=== PATIENT | male | born 1945 | race Caucasian/White ===

== ENCOUNTER 2019-10-24 22:04 | Outpatient (REF) | payer MEDICARE, MEDICAID, SELFPAY ==
[2019-10-24 21:37] LABS: Abs Immature Grans 0.03 k/cumm (0.0-0.09); Absolute Basophil Count 0.05 k/cumm (0.0-0.2); Absolute Lymphocyte Count 1.65 k/cumm (1.2-3.4); Absolute Monocyte Count 0.79 k/cumm (0.11-0.7); Absolute Neutrophil Count 7.55 k/cumm (1.2-6.7); Basophils % 0.5; HCT 39.2 % (40.0-50.0); HGB 12.9 g/dL (13.5-17.5); Immature Grans % 0.3 %; Lymphocytes % 16.2; Mean Corp. HGB Concentration 32.9 g/dL (32.0-36.0); Mean Corpuscular Hemoglobin 29.4 pg (27.0-33.0); Mean Corpuscular Volume 89.3 fL (80-95); Mean Platelet Volume 10.1 fL (8.0-11.0); Monocytes % 7.8; Neutrophils % 74.2; Platelet Count 350 x1000/uL (130-400); RBC 4.39 m/cumm (4.50-6.00); RBC Distribution Width 15.4 % (11.8-14.1); White Blood Cell Count 10.17 k/cumm (4.4-10.8)
[2019-10-24 21:55] LABS: COMMENT (LAB VIEW ONLY) 160.91 mg/dL
[2019-10-24 23:06] LABS: Microalb ug/mg Crea 86.2 ug/mg Cr
[2019-10-25 15:26] LABS: Anion Gap 9.5 mmol/L (3-11); BUN 32 mg/dL (7-18); CO2 29.5 mmol/L (21.0-32.0); CREATININE 1.32 mg/dL (0.70-1.30); Calcium 9.4 mg/dL (8.5-10.1); Chloride 104 mmol/L (98-107); Estimated GFR 53.02 (mL/min/1.73m2); Glucose 101 mg/dL (74-106); Potassium 3.9 mmol/L (3.5-5.1); Sodium 143 mmol/L (136-145)
== END 2019-10-24 22:24 ==
LOC: NCHCN 22:04
PROVIDERS: Visit Provider Nurse Practitioner Family
DX: I10 Essential (primary) hypertension (principal); R53.83 Other fatigue; J96.11 Chronic respiratory failure with hypoxia
CPT/HCPCS: 80048; 82043; 82570; 85025

== ENCOUNTER 2020-06-19 14:03 | Outpatient (REF) | payer MEDICARE, MEDICAID, SELFPAY ==
[2020-06-19 22:13] LABS: HCT 36.3 % (40.0-50.0); HGB 11.9 g/dL (13.5-17.5); MCH 30.2 pg (27.0-33.0); MCHC 32.8 % (32.0-36.0); MCV 92.1 fL (80-95); MPV 10.4 fL (8.0-11.0); Platelet Count 320 10^3/uL (130-400); RBC 3.94 10^6/uL (4.36-5.78); RDW 14.9 % (11.8-14.1); RDW-SD 49.8 fL; WBC 9.42 10^3/uL (4.4-10.8)
== END 2020-06-19 14:23 ==
LOC: NCHCN 14:03
PROVIDERS: Visit Provider Nurse Practitioner Family
DX: N18.9 Chronic kidney disease, unspecified (principal); D64.9 Anemia, unspecified
CPT/HCPCS: 85027

== ENCOUNTER 2021-04-01 09:21 | Outpatient (REF) | payer MEDICARE, MEDICAID, SELFPAY ==
[2021-04-01 14:23] LABS: Anion Gap 12.1 mmol/L (3-11); BUN 39 mg/dL (7-18); CO2 26.9 mmol/L (21.0-32.0); CREATININE 1.4 mg/dL (0.70-1.30); Calcium 9.3 mg/dL (8.5-10.1); Calculated LDL 82 mg/dL (<100); Chloride 107 mmol/L (98-107); Cholesterol 155 mg/dL (<200); Estimated GFR 49.27 (mL/min/1.73m2); Glucose 148 mg/dL (74-106); HDL Cholesterol 67 mg/dL (40-60); Potassium 4.1 mmol/L (3.5-5.1); Sodium 146 mmol/L (136-145); Triglyceride 33 mg/dL (<150)
== END 2021-04-01 09:22 | disposition home or self-care (01) ==
LOC: NCHCN 09:21
PROVIDERS: Visit Provider Nurse Practitioner Family
DX: I12.9 Hypertensive chronic kidney disease with stage 1 through stage 4 chronic kidney disease, or unspecified chronic kidney disease (principal); N18.9 Chronic kidney disease, unspecified
CPT/HCPCS: 80048; 80061

== ENCOUNTER 2023-02-16 18:33 | Outpatient (REF) | payer OTHER, MEDICAID, SELFPAY ==
--- OUTSIDE RECORDS SUMMARY | 2023-02-16 18:42 | XMS_ITS | Continuity of Care Document ---
Author Name Unknown Organization [facility] Address [address] [place] [address] Care Team Providers Care Side Puller Name Role Phone Lillian Baez Primary Care Physician Encounter [facility] [id number] Date(s): 10/08/22 - 10/08/[address] [id number] Encounter Diagnosis Acute bronchitis(Discharge Diagnosis) - 10/08/22 Atypical chest pain(Discharge Diagnosis) - 10/08/22 Acute bronchitis, unspecified(Final) - Other chest pain(Final) - Discharge Disposition: Home or Self Care Attending Physician: Alie Marcial MD Admitting Physician: Alie Marcial MD Allergies, Adverse Reactions, Alerts Substance Reaction Severity Status levoFLOXacin Skin rash Unknown Active Assessment and Plan Extracted from: Title:Clinical Document Author:Cathy Junior te:10/08/22 Diagnosis: 1. Acute bronchit is Comment: Diagnosis: 2. Atypical chest pain Comment: Diagnosis: Chest pain Comment: Functional Status 10/08/22 Family Member Travel History No recent t ravel Recent Travel History No recent travel Other exposure to Infectious Disease Non e Immunizations Given and Recorded Vaccine Date Status Refusal Reason pneumococcal 13-valent conjugate vaccine 09/05/15 Recorded pneumococcal 23-polyvalent vaccine 09/27/10 Record ed Results Laboratory List Name Date Troponin-I 10/08/22 Basic Metabolic Panel 10/08/22 CBC w/ Diff 10/08/22 D-Dimer 10/08/22 NT- Pro BNP 10/08/22 Troponin-I 10/08/22 Automated Diff 10/08/22 Most recent to oldest [Reference Range]: 1 2 WBC [5.0-10.0 x10^3/mcL] 12.4 x10^3/mcL *HI* (10/08/22 7:31 AM) RBC [4.6-6.0 x10^6/mcL] 3.9 x10^6/mcL *LOW* (10/08/22 7:31 AM) Neutro Auto [40.0-75.0 %] 75.4 % *HI* (10/08/22 7:31 AM) Lymph Auto [20.0-50.0 %] 14.2 % *LOW* (10/08/22 7:31 AM) [place] Auto [2.0-15.0 %] 8.7 % (10/08/22 7:31 AM) Basophil Auto [0.0-1.0 %] 0.4 % (10/08/22 7:31 AM) BUN [7-18 mg/dL] 23 mg/dL *HI* (10/08/22 7:31 AM) Glucose Level [74-106 mg/dL] 130 mg/dL *HI* (10/08/22 7:31 AM) Potassium Level [3.5-5.1 mmol/L] 3.5 mmo l/L (10/08/22 7:31 AM) MCV [80.0-96.0] 91.9 (10/08/22 7:31 AM) MCHC [31.0-35.0 g/dL] 32.4 g/dL (10/08/22 7:31 AM) Troponin-I [0.0-76.2 pg/mL] 5.4 pg/mL (10/08/22 10:00 AM) 5.8 pg/mL (10/08/22 7:31 AM) Sodium Level [136-145 mmol/L] 142 mmol/L (10/08/22 7:31 AM) Hct [41.0-51.0 %] 36.1 % *LOW* (10/08/22 7:31 AM) Calcium Level [8.5-10.1 mg/dL] 8.9 mg/dL (10/08/22 7:31 AM) MCH [26.0-32.0 pg] 29.8 pg (10/08/22 7:31 AM) Neutro Absolute 9.4 x10^3/mcL *NA* (10/08/22 7:31 AM) Hgb [14.0-18.0 g/dL] 11.7 g/dL *LOW* (10/08/22 7:31 AM) Platelets [130-450 x10^3/mcL] 320 x10^3/ mcL (10/08/22 7:31 AM) CO2 [21-32 mmol/L] 28 mmol/L (10/08/22 7:31 AM) eGFR Non-AA [>=60] 52 *LOW* (10/08/22 7:31 AM) eGFR AA [>=60] 52 *LOW* (10/08/22 7:31 AM) NT-proBNP [0-450 pg/mL] 331 pg/mL (10/08/22 7:31 AM) Chloride Level [98-107 mmol/L] 104 mmol/ L (10/08/22 7:31 AM) RDW-CV [11.5-17.0 %] 15.1 % (10/08/22 7:31 AM) Imm Gran Auto [0.0-0.9 %] 0.4 % (10/08/22 7:31 AM) Creatinine Level [0.70-1.30 mg/dL] 1.39 mg/dL *HI* (10/08/22 7:31 AM) D Dimer, (Quant.) [0.00-0.50 mg/L] 0.34 mg/L (10/08/22 7:31 AM) Eos, Auto [1.0-6.0 %] 0.9 % *LOW* (10/08/22 7:31 AM) Vital Signs Most recent to oldest [Reference Range]: 1 2 3 Temperature Temporal Artery [36-38 Deg C] 36.7 Deg C (10/08/22 7:05 AM) Peripheral Pulse Rate [60-100 bpm] 76 bpm (10/08/22 10:40 AM) 72 bpm (10/08/22 9:32 AM) 76 bpm (10/08/22 8:12 AM) Respiratory Rate [12-24 br/min] 16 br/min (10/08/22 7:05 AM) Blood Pressure [90-140/60-90 mmHg] 144/66mmHg *HI* (10/08/22 10:40 AM) 140/68mmHg (10/08/22 9:32 AM) 138/68mmHg (10/08/22 8:12 AM) Weight Dosing 85.00 kg (10/08/22 7:20 AM) Weight Estimated 85.00 kg (10/08/22 7:05 AM) Height/Length Dosing 162.000 cm (10/08/22 7:20 AM) Height/Length Estimated 162.000 cm (10/08/22 7:05 AM) Social History Social History Type Response Tobacco Never tobacco user T obacco Use:. Sex Male Hospital Discharge Instructions Patient Education 10/08/2022 09:49:49 Nonspecific Chest Pain, Adult Nonspecific Chest Pain, Adult Chest pain is an uncomfortable, tight, or painful feeling in the chest. The pain can feel like a crushing, aching, or squeezing pressure. A person can feel a burning or tingling sensation. Chest paincan also be felt in your back, neck, jaw, shoulder, or arm. This pain can be worse when you move, sneeze, or take a deep breath. Chest pain can be caused by a condition that is life-threatening. This must be treated right away. It can also be caused by something that is not life- threatening. If you have chest pain, it can be hard to know the difference, so it is important to get help right away to make sure that you do not have a serious condition. Some life-threatening causes of chest pain include: ??? Heart attack. ??? A tear in the body's main blood vessel (aortic dissection). ??? Inflammation around your heart (pericarditis). ??? A problem in the lungs, such as a blood clot (pulmonary embolism) or a collapsed lung (pneumothorax). Some non life-threatening causes of chest pain include: ??? Heartburn. ??? Anxiety or stress. ??? Damage to the bones, muscles, and cartilage that make up your chest wall. ??? Pneumonia or bronchitis. ??? Shingles infection (varicella-zoster virus). Your chest pain may come and go. It may also be constant. Your health care provider will do tests and other studies to find the cause of your pain. Treatment will depend on the cause of your chest pain. Follow these instructions at home: Medicines ??? Take eikd-jbp-znrwhtw and prescription medicines only as told by your health care provider. ??? If you were prescribed an antibiotic medicine, take it as told by your health care provider. Donot stop taking the antibiotic even if you start to feel better. Activity ??? Avoid any activities that cause chest pain. ??? Do not lift anything that is heavier than 10 lb (4.5 kg), or the limit that you are told, untilyour health care provider says that it is safe. ??? Rest as directed by your health care provider. ??? Return to your normal activities only as told by your health care provider. Ask your health care provider what activities are safe for you. Lifestyle ??? Do not use any products that contain nicotine or tobacco, such as cigarettes, e-cigarettes, andchewing tobacco. If you need help quitting, ask your health care provider. ??? Do not drink alcohol. ??? Make healthy lifestyle changes as recommended. These may include: ??? Getting regular exercise. Ask your health care provider to suggest some exercises that are safefor you. ??? Eating a heart-healthy diet. This includes plenty of fresh fruits and vegetables, whole grains,low-fat (lean) protein, and low-fat dairy products. A dietitian can help you find healthy eating options. ??? Maintaining a healthy weight. ??? Managing any other health conditions you may have, such as high blood pressure (hypertension) or diabetes. ??? Reducing stress, such as with yoga or relaxation techniques. General instructions ??? Pay attention to any changes in your symptoms. ??? It is up to you to get the results of any tests that were done. Ask your health care provider, or the department that is doing the tests, when your results will be ready. ??? Keep all follow-up visits as told by your health care provider. This is important. ??? You may be asked to go for further testing if your chest pain does not go away. Contact a health care provider if: ??? Your chest pain does not go away. ??? You feel depressed. ??? You have a fever. ??? You notice changes in your symptoms or develop new symptoms. Get help right away if: ??? Your chest pain gets worse. ??? You have a cough that gets worse, or you cough up blood. ??? You have severe pain in your abdomen. ??? You faint. ??? You have sudden, unexplained chest discomfort. ??? You have sudden, unexplained discomfort in your arms, back, neck, or jaw. ??? You have shortness of breath at any time. ??? You suddenly start to sweat, or your skin gets clammy. ??? You feel nausea or you vomit. ??? You suddenly feel lightheaded or dizzy. ??? You have severe weakness, or unexplained weakness or fatigue. ??? Your heart begins to beat quickly, or it feels like it is skipping beats. These symptoms may represent a serious problem that is an emergency. Do not wait to see if the symptoms will go away. Get medical help right away. Call your local emergency services (911 in the [place] Do not drive yourself to the hospital. Summary ??? Chest pain can be caused by a condition that is serious and requires urgent treatment. It may also be caused by something that is not life-threatening. ??? Your health care provider may do lab tests and other studies to find the cause of your pain. ??? Follow your health care provider's instructions on taking medicines, making lifestyle changes, and getting emergency treatment if symptoms become worse. ??? Keep all follow-up visits as told by your health care provider. This includes visits for any further testing if your chest pain does not go away. This information is not intended to replace advice given to you by your health care provider. Make sure you discuss any questions you have with your health care provider. Document Revised: 11/27/2021 Document Reviewed: 11/27/2021 [employer] Patient Education ?? 2021 [employer]. 10/08/2022 09:49:47 Acute Bronchitis, Adult Acute Bronchitis, Adult Acute bronchitis is sudden or acute swelling of the air tubes (bronchi) in the lungs. Acute bronchitis causes these tubes to fill with mucus, which can make it hard to breathe. It can also cause coughing or wheezing. In adults, acute bronchitis usually goes away within 2 weeks. A cough caused by bronchitis may lastup to 3 weeks. Smoking, allergies, and asthma can make the condition worse. What are the causes? This condition can be caused by germs and by substances that irritate the lungs, including: ??? Cold and flu viruses. The most common cause of this condition is the virus that causes the common cold. ??? Bacteria. ??? Substances that irritate the lungs, including: ??? Smoke from cigarettes and other forms of tobacco. ??? Dust and pollen. ??? Fumes from chemical products, gases, or burned fuel. ??? Other materials that pollute indoor or outdoor air. ??? Close contact with someone who has acute bronchitis. What increases the risk? The following factors may make you more likely to develop this condition: ??? A weak body's defense system, also called the immune system. ??? A condition that affects your lungs and breathing, such as asthma. What are the signs or symptoms? Common symptoms of this condition include: ??? Lung and breathing problems, such as: ??? Coughing. This may bring up clear, yellow, or green mucus from your lungs (sputum). ??? Wheezing. ??? Having too much mucus in your lungs (chest congestion). ??? Having shortness of breath. ??? A fever. ??? Chills. ??? Aches and pains, including: ??? Tightness in your chest and other body aches. ??? A sore throat. How is this diagnosed? This condition is usually diagnosed based on: ??? Your symptoms and medical history. ??? A physical exam. You may also have other tests, including tests to rule out other conditions, such as pneumonia. These tests include: ??? A test of lung function. ??? Test of a mucus sample to look for the presence of bacteria. ??? Tests to check the oxygen level in your blood. ??? Blood tests. ??? Chest X-ray. How is this treated? Most cases of acute bronchitis clear up over time without treatment. Your health care provider may recommend: ??? Drinking more fluids. This can thin your mucus, which may improve your breathing. ??? Using a device that gets medicine into your lungs (inhaler) to help improve breathing and control coughing. ??? Using a vaporizer or a humidifier. These are machines that add water to the air to help you breathe better. ??? Taking a medicine for a fever. ??? Taking a medicine that thins mucus and clears congestion (expectorant). ??? Taking a medicine that prevents or stops coughing (cough suppressant). Follow these instructions at home: Activity ??? Get plenty of rest. ??? Return to your normal activities as told by your health care provider. Ask your health care provider what activities are safe for you. Lifestyle ??? Drink enough fluid to keep your urine pale yellow. ??? Do not drink alcohol. ??? Do not use any products that contain nicotine or tobacco, such as cigarettes, e-cigarettes, andchewing tobacco. If you need help quitting, ask your health care provider. Be aware that: ??? Your bronchitis will get worse if you smoke or breathe in other people's smoke (secondhand smoke). ??? Your lungs will heal faster if you quit smoking. General instructions ??? Take dqkf-myr-yehezhh and prescription medicines only as told by your health care provider. ??? Use an inhaler, vaporizer, or humidifier as told by your health care provider. ??? If you have a sore throat, gargle with a salt-water mixture 3???4 times a day or as needed. To make a salt-water mixture, completely dissolve ?1 tsp (3???6 g) of salt in 1 cup (237 mL) of warm water. ??? Take two teaspoons of honey at bedtime to lessen coughing at night. ??? Keep all follow-up visits as told by your health care provider. This is important. How is this prevented? To lower your risk of getting this condition again: ??? Wash your hands often with soap and water. If soap and water are not available, use hand possum trapper. ??? Avoid contact with people who have cold symptoms. ??? Try not to touch your mouth, nose, or eyes with your hands. ??? Avoid places where there are fumes from chemicals. Breathing these fumes will make your condition worse. ??? Get the flu shot every year. Contact a health care provider if: ??? Your symptoms do not improve after 2 weeks of treatment. ??? You vomit more than once or twice. ??? You have symptoms of dehydration such as: ??? Dark urine. ??? Dry skin or eyes. ??? Increased thirst. ??? Headaches. ??? Confusion. ??? Muscle cramps. Get help right away if you: ??? Cough up blood. ??? Feel pain in your chest. ??? Have severe shortness of breath. ??? Faint or keep feeling like you are going to faint. ??? Have a severe headache. ??? Have fever or chills that get worse. These symptoms may represent a serious problem that is an emergency. Do not wait to see if the symptoms will go away. Get medical help right away. Call your local emergency services (911 in the [place] Do not drive yourself to the hospital. Summary ??? Acute bronchitis is sudden (acute) inflammation of the air tubes (bronchi) between the windpipeand the lungs. In adults, acute bronchitis usually goes away within 2 weeks, although coughing may last 3 weeks or longer. ??? Take dxpc-lhv-zkcvkoc and prescription medicines only as told by your health care provider. ??? Drink enough fluid to keep your urine pale yellow. ??? Contact a health care provider if your symptoms do not improve after 2 weeks of treatment. ??? Get help right away if you cough up blood, faint, or have chest pain or shortness of breath. This information is not intended to replace advice given to you by your health care provider. Make sure you discuss any questions you have with your health care provider. Document Revised: 08/13/2021 Document Reviewed: 04/05/2020 [employer] Patient Education ?? 2021 [employer]. Follow Up Care 10/08/2022 07:05:45 With:Follow up with primary care provider Address: When:1 to 2 weeks Physician Emergency department Note * Alie Marcial MD: PERFORM Event Display: ED Note Physician Authored Date: [id number] NELI KING :1945 Age:77 years Sex:Male Visit Date:10/08/2022 Primary Care Physician: Lillian Baez NP Basic Information Time Seen: Alie Marcial MD / 10/08/2022 07:21 Chief Complaint Pt arrives with complaints of sudden onset of chest pain and SOB History Of Present Illness: states chest pain started when he woke up this a.m.??seem to get worse. ??It was worse with a deep breath in left side of chest. ??Patient has never had similar symptoms before. ??No fever no chills??no ear nose or throat pain??chronic cough no acute change??no nausea no vomiting no abdominal pain??no extremity edema no skin rashes??chronic umbilical hernia.?? Patient had reported??pain??has been there when he woke up but then became eventually a 10 out of 10 he tried his nebulizer treatment??he took 1 baby??aspirin. ??By the time EMS got there his pain had improved slightly??they gave him another 3 baby aspirin.?? Patient's pain improved??after they gave him some nitro.?? Patient pain 1 out of 10??here in the emergency department.?? Patient reports he has nasal congestion. Review of Systems: see hpi for ros Physical Exam Vitals & Measurements T:??36.7?C ??(Temporal Artery)?? HR:??72??(Peripheral)?? RR:??16?? BP:??140/68?? SpO2:??98%?? HT:??162.000??cm?? WT:??85.00??kg??(Estimated)?? O2 Flow Rate:??2?? O2 Therapy:??Nasal cannula?? General: Alert and oriented, well nourished,?No??acute distress Eye: PER?Normal??conjunctiva,??No??scleral icterus HENT: Normocephalic,??nontraumatic??Normal hearing Neck: Supple, non-tender,?No??JVD,?No??lymphadenopathy Lungs: Clear to auscultation,?Non-labored?? respiration Heart:?Normal?? rate,?Regular??rhythm,?No??murmur,?No??gallop,?No??edema Chest: wall excursion wnl no abnormal movements no obvious deformities Abdomen: Soft, non-tender, non-distended,??No??masses Musculoskeletal:?Normal?? range of motion and strength,?No??tenderness,?No??swelling Skin: Skin is warm, dry and pink,?No??rashes,?No??lesions Neurologic: Awake, alert and oriented X4 Psychiatric: Cooperative, appropriate mood and affect Medical Decision Making: For MDM please see under assessment and plan Procedure No Qualifying Data Assessment/Plan 1.??Acute bronchitis??J20.9 I think this is early bronchitis for patient especially where he has nasal congestion??and pain worse with cough??and deep inspiration we will place patient on a Z-Suresh??if patient worsens he will return to the emergency department or see primary care provider or manufacturing teacher Ordered: Discharge Patient, 10/08/22 10:47:00 EST, Home Independently, Constant Indicator ?? 2.??Atypical chest pain??R07.89 Patient's troponins x2 and EKG x2 are negative??if further pain patient will return to the emergency department or see primary care provider.?? Patient is??to follow-up with his primary care provider. Ordered: Discharge Patient, 10/08/22 10:47:00 EST, Home Independently, Constant Indicator ?? Patient Education Nonspecific Chest Pain, Adult Acute Bronchitis, Adult Follow Up With When Contact Information Follow up with primary care provider Within 1 to 2 weeks Additional Instructions: Problem List/Past Medical History Ongoing No qualifying data Historical No qualifying data Medication Administration Given !-Flexeril, 10 mg, Oral Allergies levoFLOXacin??(Skin rash) Social History Electronic Cigarette/Vaping Electronic Cigarette Use: Never. Tobacco Never tobacco user Tobacco Use:. Lab Results CBC and Differential?? LATEST RESULTS?? WBC?? 10/08/22 07:31?? 12.4 ??High?? RBC?? 10/08/22 07:31?? 3.9 ??Low?? Hgb?? 10/08/22 07:31?? 11.7 ??Low?? Hct?? 10/08/22 07:31?? 36.1 ??Low?? MCV?? 10/08/22 07:31?? 91.9?? MCH?? 10/08/22 07:31?? 29.8?? MCHC?? 10/08/22 07:31?? 32.4?? RDW-CV?? 10/08/22 07:31?? 15.1?? Platelets?? 10/08/22 07:31?? 320?? Neutro Auto?? 10/08/22 07:31?? 75.4 ??High?? Lymph Auto?? 10/08/22 07:31?? 14.2 ??Low?? [place] Auto?? 10/08/22 07:31?? 8.7?? Eos, Auto?? 10/08/22 07:31?? 0.9 ??Low?? Basophil Auto?? 10/08/22 07:31?? 0.4?? Imm Gran Auto?? 10/08/22 07:31?? 0.4?? Neutro Absolute?? 10/08/22 07:31?? 9.4? Coagulation?? LATEST RESULTS?? D Dimer, (Quant.)?? 10/08/22 07:31?? 0.34? Routine Chemistry?? LATEST RESULTS?? Sodium Level?? 10/08/22 07:31?? 142?? Potassium Level?? 10/08/22 07:31?? 3.5?? Chloride Level?? 10/08/22 07:31?? 104?? CO2?? 10/08/22 07:31?? 28?? BUN?? 10/08/22 07:31?? 23 ??High?? Glucose Level?? 10/08/22 07:31?? 130 ??High?? Creatinine Level?? 10/08/22 07:31?? 1.39 ??High?? eGFR AA?? 10/08/22 07:31?? 52 ??Low?? eGFR Non-AA?? 10/08/22 07:31?? 52 ??Low?? Calcium Level?? 10/08/22 07:31?? 8.9? Cardiac Isoenzymes?? LATEST RESULTS?? Troponin-I?? 10/08/22 10:00?? 5.4?? NT-proBNP?? 10/08/22 07:31?? 331? Electronically Signed on 10/08/22 10:51 AM Alie Marcial MD Emergency department Discharge instructions * Alie Marcial MD: PERFORM Event Display: ED Discharge Information Authored Date: [id number] NELI KING :1945 Age:77 years Sex:Male Visit Date:10/08/2022 Primary Care Physician: Lillian Baez LCSW Discharge Instructions We would like to thank you for allowing us to assist you with your healthcare needs. The following includes patient education materials and information regarding your injury/illness. Diagnosis from Today's Visit Acute bronchitis Atypical chest pain Discharge Vitals Temperature??(Temporal Artery) 98.1 ??F (36.7 ??C) Heart Rate??(Peripheral) 72 Respiratory Rate?? 16 Blood Pressure?? 140/68?? Height?? 63.78 in (162.000 cm) Weight??(Estimated) 187.42 lb (85.00 kg) Allergies levoFLOXacin??(Skin rash) What to Do Next You Need to Schedule the Following Appointments Follow Up with??Follow up with primary care provider When:??Within 1 to 2 weeks You were treated today on an emergency basis; it may be christianson to contact your primary care provider to notify them of your visit today. You may have been referred to your regular doctor or a specialist, please follow up as instructed. If your condition worsens or you can't get in to see the doctor, contact the Emergency Department. Education Materials Nonspecific Chest Pain, Adult Chest pain is an uncomfortable, tight, or painful feeling in the chest. The pain can feel like a crushing, aching, or squeezing pressure. A person can feel a burning or tingling sensation. Chest paincan also be felt in your back, neck, jaw, shoulder, or arm. This pain can be worse when you move, sneeze, or take a deep breath. Chest pain can be caused by a condition that is life-threatening. This must be treated right away. It can also be caused by something that is not life- threatening. If you have chest pain, it can be hard to know the difference, so it is important to get help right away to make sure that you do not have a serious condition. Some life-threatening causes of chest pain include: ? Heart attack. ? A tear in the body's main blood vessel (aortic dissection). ? Inflammation around your heart (pericarditis). ? A problem in the lungs, such as a blood clot (pulmonary embolism) or a collapsed lung (pneumothorax). Some non life-threatening causes of chest pain include: ? Heartburn. ? Anxiety or stress. ? Damage to the bones, muscles, and cartilage that make up your chest wall. ? Pneumonia or bronchitis. ? Shingles infection (varicella-zoster virus). Your chest pain may come and go. It may also be constant. Your health care provider will do tests and other studies to find the cause of your pain. Treatment will depend on the cause of your chest pain. Follow these instructions at home: Medicines ? Take jyky-ebd-jgyiorf and prescription medicines only as told by your health care provider. ? If you were prescribed an antibiotic medicine, take it as told by your health care provider. Do notstop taking the antibiotic even if you start to feel better. Activity ? Avoid any activities that cause chest pain. ? Do not lift anything that is heavier than 10 lb (4.5 kg), or the limit that you are told, until your health care provider says that it is safe. ? Rest as directed by your health care provider. ? Return to your normal activities only as told by your health care provider. Ask your health care provider what activities are safe for you. Lifestyle ? Do not use any products that contain nicotine or tobacco, such as cigarettes, e- cigarettes, and chewing tobacco. If you need help quitting, ask your health care provider. ? Do not drink alcohol. ? Make healthy lifestyle changes as recommended. These may include: ? Getting regular exercise. Ask your health care provider to suggest some exercises that are safe foryou. ? Eating a heart-healthy diet. This includes plenty of fresh fruits and vegetables, whole grains, low-fat (lean) protein, and low-fat dairy products. A dietitian can help you find healthy eating options. ? Maintaining a healthy weight. ? Managing any other health conditions you may have, such as high blood pressure (hypertension) or diabetes. ? Reducing stress, such as with yoga or relaxation techniques. General instructions ? Pay attention to any changes in your symptoms. ? It is up to you to get the results of any tests that were done. Ask your health care provider, or the department that is doing the tests, when your results will be ready. ? Keep all follow-up visits as told by your health care provider. This is important. ? You may be asked to go for further testing if your chest pain does not go away. Contact a health care provider if: ? Your chest pain does not go away. ? You feel depressed. ? You have a fever. ? You notice changes in your symptoms or develop new symptoms. Get help right away if: ? Your chest pain gets worse. ? You have a cough that gets worse, or you cough up blood. ? You have severe pain in your abdomen. ? You faint. ? You have sudden, unexplained chest discomfort. ? You have sudden, unexplained discomfort in your arms, back, neck, or jaw. ? You have shortness of breath at any time. ? You suddenly start to sweat, or your skin gets clammy. ? You feel nausea or you vomit. ? You suddenly feel lightheaded or dizzy. ? You have severe weakness, or unexplained weakness or fatigue. ? Your heart begins to beat quickly, or it feels like it is skipping beats. These symptoms may represent a serious problem that is an emergency. Do not wait to see if the symptoms will go away. Get medical help right away. Call your local emergency services (911 in the [place] Do not drive yourself to the hospital. Summary ? Chest pain can be caused by a condition that is serious and requires urgent treatment. It may also be caused by something that is not life-threatening. ? Your health care provider may do lab tests and other studies to find the cause of your pain. ? Follow your health care provider's instructions on taking medicines, making lifestyle changes, and getting emergency treatment if symptoms become worse. ? Keep all follow-up visits as told by your health care provider. This includes visits for any further testing if your chest pain does not go away. This information is not intended to replace advice given to you by your health care provider. Make sure you discuss any questions you have with your health care provider. Document Revised: 11/27/2021 Document Reviewed: 11/27/2021 [employer] Patient Education ?? 2021 [employer] Acute Bronchitis, Adult Acute bronchitis is sudden or acute swelling of the air tubes (bronchi) in the lungs. Acute bronchitis causes these tubes to fill with mucus, which can make it hard to breathe. It can also cause coughing or wheezing. In adults, acute bronchitis usually goes away within 2 weeks. A cough caused by bronchitis may lastup to 3 weeks. Smoking, allergies, and asthma can make the condition worse. What are the causes? This condition can be caused by germs and by substances that irritate the lungs, including: ? Cold and flu viruses. The most common cause of this condition is the virus that causes the common cold. ? Bacteria. ? Substances that irritate the lungs, including: ? Smoke from cigarettes and other forms of tobacco. ? Dust and pollen. ? Fumes from chemical products, gases, or burned fuel. ? Other materials that pollute indoor or outdoor air. ? Close contact with someone who has acute bronchitis. What increases the risk? The following factors may make you more likely to develop this condition: ? A weak body's defense system, also called the immune system. ? A condition that affects your lungs and breathing, such as asthma. What are the signs or symptoms? Common symptoms of this condition include: ? Lung and breathing problems, such as: ? Coughing. This may bring up clear, yellow, or green mucus from your lungs (sputum). ? Wheezing. ? Having too much mucus in your lungs (chest congestion). ? Having shortness of breath. ? A fever. ? Chills. ? Aches and pains, including: ? Tightness in your chest and other body aches. ? A sore throat. How is this diagnosed? This condition is usually diagnosed based on: ? Your symptoms and medical history. ? A physical exam. You may also have other tests, including tests to rule out other conditions, such as pneumonia. These tests include: ? A test of lung function. ? Test of a mucus sample to look for the presence of bacteria. ? Tests to check the oxygen level in your blood. ? Blood tests. ? Chest X-ray. How is this treated? Most cases of acute bronchitis clear up over time without treatment. Your health care provider may recommend: ? Drinking more fluids. This can thin your mucus, which may improve your breathing. ? Using a device that gets medicine into your lungs (inhaler) to help improve breathing and control coughing. ? Using a vaporizer or a humidifier. These are machines that add water to the air to help you breathebetter. ? Taking a medicine for a fever. ? Taking a medicine that thins mucus and clears congestion (expectorant). ? Taking a medicine that prevents or stops coughing (cough suppressant). Follow these instructions at home: Activity ? Get plenty of rest. ? Return to your normal activities as told by your health care provider. Ask your health care provider what activities are safe for you. Lifestyle ? Drink enough fluid to keep your urine pale yellow. ? Do not drink alcohol. ? Do not use any products that contain nicotine or tobacco, such as cigarettes, e- cigarettes, and chewing tobacco. If you need help quitting, ask your health care provider. Be aware that: ? Your bronchitis will get worse if you smoke or breathe in other people's smoke (secondhand smoke). ? Your lungs will heal faster if you quit smoking. General instructions ? Take crjb-mxj-urcdstu and prescription medicines only as told by your health care provider. ? Use an inhaler, vaporizer, or humidifier as told by your health care provider. ? If you have a sore throat, gargle with a salt-water mixture 3???4 times a day or as needed. To makea salt-water mixture, completely dissolve ?1 tsp (3???6 g) of salt in 1 cup (237 mL) of warm water. ? Take two teaspoons of honey at bedtime to lessen coughing at night. ? Keep all follow-up visits as told by your health care provider. This is important. How is this prevented? To lower your risk of getting this condition again: ? Wash your hands often with soap and water. If soap and water are not available, use hand possum trapper. ? Avoid contact with people who have cold symptoms. ? Try not to touch your mouth, nose, or eyes with your hands. ? Avoid places where there are fumes from chemicals. Breathing these fumes will make your condition worse. ? Get the flu shot every year. Contact a health care provider if: ? Your symptoms do not improve after 2 weeks of treatment. ? You vomit more than once or twice. ? You have symptoms of dehydration such as: ? Dark urine. ? Dry skin or eyes. ? Increased thirst. ? Headaches. ? Confusion. ? Muscle cramps. Get help right away if you: ? Cough up blood. ? Feel pain in your chest. ? Have severe shortness of breath. ? Faint or keep feeling like you are going to faint. ? Have a severe headache. ? Have fever or chills that get worse. These symptoms may represent a serious problem that is an emergency. Do not wait to see if the symptoms will go away. Get medical help right away. Call your local emergency services (911 in the [place] Do not drive yourself to the hospital. Summary ? Acute bronchitis is sudden (acute) inflammation of the air tubes (bronchi) between the windpipe andthe lungs. In adults, acute bronchitis usually goes away within 2 weeks, although coughing may last3 weeks or longer. ? Take qjai-edd-tzwjlnk and prescription medicines only as told by your health care provider. ? Drink enough fluid to keep your urine pale yellow. ? Contact a health care provider if your symptoms do not improve after 2 weeks of treatment. ? Get help right away if you cough up blood, faint, or have chest pain or shortness of breath. This information is not intended to replace advice given to you by your health care provider. Make sure you discuss any questions you have with your health care provider. Document Revised: 08/13/2021 Document Reviewed: 04/05/2020 [employer] Patient Education ?? 2021 [employer] Tests Performed Medications and Immunizations Administered Given !-Flexeril, 10 mg, Oral Lab Test Name Test Result Date/Time WBC 12.4 x10^3/mcL 10/08/2022 07:31 EST RBC 3.9 x10^6/mcL 10/08/2022 07:31 EST Hgb 11.7 g/dL 10/08/2022 07:31 EST Hct 36.1 % 10/08/2022 07:31 EST MCV 91.9 10/08/2022 07:31 EST MCH 29.8 pg 10/08/2022 07:31 EST MCHC 32.4 g/dL 10/08/2022 07:31 EST RDW-CV 15.1 % 10/08/2022 07:31 EST Platelets 320 x10^3/mcL 10/08/2022 07:31 EST Neutro Auto 75.4 % 10/08/2022 07:31 EST Lymph Auto 14.2 % 10/08/2022 07:31 EST [place] Auto 8.7 % 10/08/2022 07:31 EST Eos, Auto 0.9 % 10/08/2022 07:31 EST Basophil Auto 0.4 % 10/08/2022 07:31 EST Imm Gran Auto 0.4 % 10/08/2022 07:31 EST Neutro Absolute 9.4 x10^3/mcL 10/08/2022 07:31 EST D Dimer, (Quant.) 0.34 mg/L 10/08/2022 07:31 EST Sodium Level 142 mmol/L 10/08/2022 07:31 EST Potassium Level 3.5 mmol/L 10/08/2022 07:31 EST Chloride Level 104 mmol/L 10/08/2022 07:31 EST CO2 28 mmol/L 10/08/2022 07:31 EST BUN 23 mg/dL 10/08/2022 07:31 EST Glucose Level 130 mg/dL 10/08/2022 07:31 EST Creatinine Level 1.39 mg/dL 10/08/2022 07:31 EST eGFR AA 52 10/08/2022 07:31 EST eGFR Non-AA 52 10/08/2022 07:31 EST Calcium Level 8.9 mg/dL 10/08/2022 07:31 EST Troponin-I 5.4 pg/mL 10/08/2022 10:00 EST NT-proBNP 331 pg/mL 10/08/2022 07:31 EST Patient/Print Journalist Signature Patient Name:NELI KING I have received this information and my questions have been answered. Patient/Print Journalist Name: Patient/Print Journalist Signature: Relationship to Patient: Witness Name/Signature: Date: Electronically Signed on: 10/08/2022 10:53 ESTSigned by:AMS Discharge summary * Cathy Junior: PERFORM Event Display: Discharge Note Authored Date: * Cathy Junior: PERFORM Event Display: Discharge Note Authored Date: Diagnosis: 1. Acute bronchitis Comment: Diagnosis: 2. Atypical chest pain Comment: Diagnosis: Chest pain Comment: Electronically Signed on 10/08/22 11:14 AM Cathy Junior Patient Care team information Personnel Name: Lillian Baez NP Address: Address: [address] [place] [phone] [id number]
--- OUTSIDE RECORDS SUMMARY | 2023-02-16 18:42 | XMS_ITS | Continuity of Care Document ---
Author Name Unknown Organization [facility] Address [address] [place] [address] Care Team Providers Care Dredge Pipe Installer Name Role Phone Lillian Baez Primary Care Physician Encounter [facility] Date(s): 12/23/22 - 01/29/[address] [phone] Discharge Disposition: Home or Self Care Attending Physician: Gabriel Velez MD Admitting Physician: Gabriel Velez MD Referring Physician: Gabriel Velez MD Allergies, Adverse Reactions, Alerts Substance Reaction Severity Status levoFLOXacin Skin rash Unknown Active Immunizations Given and Recorded Vaccine Date Status Refusal Reason pneumococcal 13-valent conjugate vaccine 09/05/15 Recorded pneumococcal 23-polyvalent vaccine 09/27/10 Record ed Social History Social History Type Response Tobacco Never tobacco user T obacco Use:. Sex Male Patient Care team information Care Team Personnel Name: Lillian Baez ANIMAL CONTROL SUPERVISOR Position: No Access Member Role: Primary Care Physician Address: Address: [address] [place] [id number]
--- OUTSIDE RECORDS SUMMARY | 2023-02-16 18:43 | XMS_ITS | Continuity of Care Document ---
Author Name Unknown Organization [facility] Address Unknown Care Team Providers Care Tin Stacker Name Role Phone Unknown PCP, Unknown PCP Primary Care Physician Unavailable Encounter Date(s): 06/05/21 - 06/05/21 [facility] [address] [place], [place] [address] [facility] Encounter Diagnosis COPD with acute bronchitis(Discharge Diagnosis) - 06/05/21 Sleep apnea in adult(Discharge Diagnosis) - 06/05/21 COPD without exacerbation(Discharge Diagnosis) - 06/05/21 Discharge Disposition: Home or Self Care Attending Physician: Malaika Pastrana MD Admitting Physician: Malaika Pastrana MD Allergies, Adverse Reactions, Alerts Substance Reaction Severity Status Levaquin Active Immunizations Given and Recorded Vaccine Date Status Refusal Reason influenza virus vaccine, inactivated 09/28/18 Basil rded pneumococcal 13-valent vaccine 09/05/15 Recorded (Tdap) diphth/acel pertuss/tetanus adult 04/24/11 Recorded pneumococcal 23-valent vaccine 03/25/11 Recorded Medications acetaminophen 650 mg oral tablet, extended release 0 Refill(s) Start Date: 05/30/21 Status: Ordered Advair Diskus 500 mcg-50 mcg inhalation powder Inhaled, BID, 0 Refill(s) Start Date: 04/11/21 Status: Ordered Advair Diskus 500 mcg-50 mcg inhalation powder INHALE 1 PUFF BY MOUTH TWICE DAILY Start Date: 05/30/21 Status: Ordered Advair Diskus 500 mcg-50 mcg inhalation powder 1 puff(s), INH, BID, # 1 ea, 11 Refill(s), [facility]: [id number], 162, cm, Height/Length Dosing, 06/05/21 10:15:00 EDT, 79.3, kg, 06/05/21 10:15:00 EDT, Weight Dosing Start Date: 06/05/21 Status: Ordered Albuterol (Eqv-ProAir HFA) 90 mcg/inh inhalation aerosol 2 puff(s), Inhaled, q6hr, 0 Refill(s) Start Date: 04/11/21 Status: Ordered albuterol CFC free 90 mcg/inh inhalation aerosol with adapter INHALE 2 PUFFS BY MOUTH EVERY 4 TO 6 HOURS NEEDED Start Date: 05/30/21 Status: Ordered atorvastatin 20 mg oral tablet 20 mg = 1 tab(s), Oral, Daily, 0 Refill(s) Start Date: 04/11/21 Status: Ordered azithromycin 250 mg oral tablet TAKE 1 TABLET 250MG BY MOUTH ONCE DAILY FOR 4 DAYS Start Date: 05/30/21 Status: Ordered benzonatate 100 mg oral capsule 100 mg = 1 cap(s), Oral, TID, 0 Refill(s) Start Date: 04/11/21 Status: Ordered Daliresp 500 mcg oral tablet 500 mcg, Oral, Daily, # 30 tab(s), 0 Refill(s) Start Date: 04/11/21 Status: Ordered Daliresp 500 mcg oral tablet TAKE ONE TABLET BY MOUTH EVERY DAY Start Date: 05/30/21 Status: Ordered Daliresp 500 mcg oral tablet 500 mcg, Oral, Daily, # 30 tab(s), 11 Refill(s), Pharmacy: [id number], 162, cm, 06/05/21 10:15:00 EDT, Height/Length Dosing, 79.3, kg, 06/05/21 10:15:00 EDT, Weight Dosing Start Date: 06/05/21 Status: Ordered famotidine 0 Refill(s) Start Date: 04/11/21 Status: Ordered famotidine 40 mg oral tablet TAKE ONE TABLET BY MOUTH EVERY DAY Start Date: 05/30/21 Status: Ordered FeroSul 325 mg oral tablet TAKE ONE TABLET BY MOUTH THREE TIMES A DAY WITH A SMALL GLASS OF ORANGE JUICE Start Date: 05/30/21 Status: Ordered ferrous sulfate 325 mg oral enteric coated tablet 325 mg = 1 tab(s), Oral, Daily, 0 Refill(s) Start Date: 04/11/21 Status: Ordered fexofenadine Oral, 0 Refill(s) Start Date: 04/11/21 Status: Ordered fexofenadine 180 mg oral tablet TAKE 1 TABLET BY MOUTH EVERY DAY Start Date: 05/30/21 Status: Ordered FREESTYLE MIS LANCETS FREESTYLE MIS LANCETS, 0 Refill(s) Start Date: 05/30/21 Status: Ordered FREESTYLE JOYCELYN LITE FREESTYLE JOYCELYN LITE, 0 Refill(s) Start Date: 05/30/21 Status: Ordered FREESTYLE 28G LANCETS TEST TWO TIMES A DAY Start Date: 05/30/21 Status: Ordered FREESTYLE LITE TEST STRIP TEST DAILY Start Date: 05/30/21 Status: Ordered FREESTYLE MIS LANCETS FREESTYLE MIS LANCETS, 0 Refill(s) Start Date: 05/30/21 Status: Ordered FREESTYLE JOYCELYN LITE FREESTYLE JOYCELYN LITE, 0 Refill(s) Start Date: 05/30/21 Status: Ordered hydroCHLOROthiazide-lisinopril 12.5 mg-20 mg oral tablet 1 tab(s), Oral, Daily, 0 Refill(s) Start Date: 04/11/21 Status: Ordered hydroCHLOROthiazide-lisinopril 12.5 mg-20 mg oral tablet TAKE TWO TABLETS BY MOUTH EVERY DAY Start Date: 05/30/21 Status: Ordered metFORMIN 500 mg oral tablet 500 mg = 1 tab(s), Oral, BID, 0 Refill(s) Start Date: 04/11/21 Status: Ordered metFORMIN 500 mg oral tablet TAKE ONE TABLET BY MOUTH EVERY DAY Start Date: 05/30/21 Status: Ordered methylPREDNISolone Dose Pack 4 mg oral tablet 0 Refill(s) Start Date: 05/30/21 Status: Ordered pantoprazole 40 mg oral enteric coated tablet 40 mg = 1 tab(s), Oral, Daily, 0 Refill(s) Start Date: 04/11/21 Status: Ordered Stiolto Respimat 2.5 mcg-2.5 mcg inhalation aerosol INHALE TWO PUFFS BY MOUTH EVERY MORNING Start Date: 05/30/21 Status: Ordered Stiolto Respimat 2.5 mcg-2.5 mcg inhalation aerosol 2 puff(s), INH, q24hr, # 4 gm, 11 Refill(s), [facility]acy: [id number], 162, cm, Height/Length Dosing, 06/05/21 10:15:00 EDT, 79.3, kg, 06/05/21 10:15:00 EDT, Weight Dosing Start Date: 06/05/21 Status: Ordered Social History Social History Type Response Sex Male
[2023-02-16 18:57] LABS: Abs Immature Grans 0.02 10^3/uL (0.0-0.06); Absolute Basophil Count 0.06 10^3/uL (0.0-0.2); Absolute Eosinophil Count 0.07 10^3/uL (0.0-0.7); Absolute Neutrophil Count 4.67 10^3/uL (1.2-6.7); Basophils % 0.8; Eosinophils % 0.9; HCT 35.9 % (40.0-50.0); HGB 11.8 g/dL (13.5-17.5); Immature Grans % 0.3; Lymphocytes % 25.6; MCH 29.9 pg (27.0-33.0); MCHC 32.9 % (32.0-36.0); MCV 91 fL (80-95); MPV 9.9 fL (8.0-11.0); Monocytes % 9.4; Platelet Count 380 10^3/uL (130-400); RBC 3.94 10^6/uL (4.36-5.78); RDW 15.7 % (11.8-14.1); RDW-SD 53.1 fL; WBC 7.42 10^3/uL (4.4-10.8)
[2023-02-16 19:12] LABS: ALT 23 U/L (16-63); AST 20 U/L (15-37); Albumin 4.3 g/dL (3.4-5.0); Alkaline Phosphatase 68 U/L (46-116); Anion Gap 11.7 mmol/L (3-11); BUN 26 mg/dL (7-18); Bilirubin, Total 0.5 mg/dL (0.2-1.0); CO2 25.3 mmol/L (21.0-32.0); CREATININE 1.5 mg/dL (0.70-1.30); Calcium 9.5 mg/dL (8.5-10.1); Chloride 107 mmol/L (98-107); Estimated GFR 47.36 (mL/min/1.73m2); Glucose 168 mg/dL (74-106); Potassium 4.4 mmol/L (3.5-5.1); Sodium 144 mmol/L (136-145); Total Protein 7.2 g/dL (6.4-8.2)
[2023-02-16 20:21] LABS: Iron 80 ug/dL (65-175); Total Iron Binding Capacity 314 ug/dL (250-450); Transferrin Sat 25 % (20-55)
[2023-02-16 20:24] LABS: Hemoglobin A1C 6.4 % (<5.7)
== END 2023-02-16 18:34 | disposition home or self-care (01) ==
LOC: NCHCN 18:33
PROVIDERS: Visit Provider Nurse Practitioner Family
DX: D64.9 Anemia, unspecified (principal); E11.9 Type 2 diabetes mellitus without complications; I10 Essential (primary) hypertension; N18.9 Chronic kidney disease, unspecified
CPT/HCPCS: 80053; 83036; 83540; 83550; 85025

== ENCOUNTER 2025-01-24 20:58 | Outpatient (REF) | payer MEDICARE, MEDICAID, SELFPAY ==
[2025-01-24 21:45] LABS: ALT 26 U/L (16-63); AST 23 U/L (15-37); Albumin 4.3 g/dL (3.4-5.0); Alkaline Phosphatase 62 U/L (46-116); Anion Gap 9.8 mmol/L (3-11); BUN 28 mg/dL (7-18); Bilirubin, Total 0.3 mg/dL (0.2-1.0); CO2 26.2 mmol/L (21.0-32.0); CREATININE 1.3 mg/dL (0.70-1.30); Calcium 9.5 mg/dL (8.5-10.1); Calculated LDL 52 mg/dL (<100); Chloride 107 mmol/L (98-107); Cholesterol 128 mg/dL (<200); Estimated GFR 55.88 (mL/min/1.73m2); Glucose 75 mg/dL (74-106); HDL Cholesterol 68 mg/dL (>or=40); Potassium 4.6 mmol/L (3.5-5.1); Sodium 143 mmol/L (136-145); Total Protein 7.6 g/dL (6.4-8.2); Triglyceride 40 mg/dL (<150)
== END 2025-01-24 20:59 | disposition home or self-care (01) ==
LOC: NCHCN 20:58
PROVIDERS: Visit Provider Nurse Practitioner Family
DX: E78.00 Pure hypercholesterolemia, unspecified (principal); I10 Essential (primary) hypertension
CPT/HCPCS: 80053; 80061

== ENCOUNTER 2025-08-15 15:33 | Outpatient (REF) | payer MEDICARE, MEDICAID, SELFPAY ==
[2025-08-15 20:23] LABS: HCT 37.0 % (40.0-50.0); HGB 12.3 g/dL (13.5-17.5); MCH 30.4 pg (27.0-33.0); MCHC 33.2 % (32.0-36.0); MCV 91 fL (80-95); MPV 9.5 fL (8.0-11.0); Platelet Count 308 10^3/uL (130-400); RBC 4.05 10^6/uL (4.36-5.78); RDW 14.6 % (11.8-14.1); RDW-SD 49.1 fL; WBC 10.49 10^3/uL (4.4-10.8)
[2025-08-15 20:43] LABS: ALT 19 U/L (10-49); AST 20 U/L (<34); Albumin 4.8 g/dL (3.4-5.0); Alkaline Phosphatase 58 U/L (46-116); Anion Gap 9.9 mmol/L (3-11); BUN 25 mg/dL (9-23); Bilirubin, Total 0.50 mg/dL (0.2-1.2); CO2 26.1 mmol/L (20.0-31.0); Calcium 9.7 mg/dL (8.3-10.6); Chloride 108 mmol/L (98-107); Cholesterol 134 mg/dL (<200); Glucose 101 mg/dL (74-106); HDL Cholesterol 54 mg/dL (>40); Potassium 3.8 mmol/L (3.5-5.1); Sodium 144 mmol/L (136-145); Total Protein 7.5 g/dL (5.7-8.2)
[2025-08-15 21:27] LABS: Microalb ug/mg Crea 55.5 ug/mg Cr
== END 2025-08-15 15:34 | disposition home or self-care (01) ==
LOC: NCHCN 15:33
PROVIDERS: Visit Provider Nurse Practitioner Family
DX: N18.31 Chronic kidney disease, stage 3a (principal); E78.5 Hyperlipidemia, unspecified
CPT/HCPCS: 80053; 80061; 85027; 82043; 82570